=== PATIENT | female | born 1995 | race Caucasian/White ===

== ENCOUNTER 2018-03-27 23:11 | Emergency (ER) | payer OTHER, MEDICAID ==
[~2018-03-27] VITALS: Ht 152.4 cm; Wt 97.1 kg
[2018-03-27 23:17] VITALS: Ht 152.4 cm; Wt 97.1 kg
[2018-03-28 00:17] VITALS: BP 124/95
== END 2018-03-28 00:17 | disposition home or self-care (01) ==
LOC: ED 23:11
DX: H66.92 Otitis media, unspecified, left ear (principal); J03.90 Acute tonsillitis, unspecified; R05 Cough; Z88.2 Allergy status to sulfonamides; Z88.6 Allergy status to analgesic agent; Z88.5 Allergy status to narcotic agent
CPT/HCPCS: J1100